=== PATIENT | male | born 1940 | race Caucasian/White ===

== ENCOUNTER 2020-08-25 11:59 | Emergency (ER) | payer OTHER ==
[~2020-08-25] VITALS: Ht 180.3 cm; Wt 104.3 kg
[~2020-08-25 11:59] MED LIST: AMLODIPINE BESY10 MG PO; ASPIRIN300 MG PO; CRESTOR10 MG PO; DEPO-TESTO100 MG/1 M IM; GLUCOPHAGE XR750 MG PO; HYTRIN 5 M5 MG/1 CAP PO; IRBESARTAN-HCT1 EAC1 PO; LANSOPRAZOLE30 MG PO; MAG DELAY64 MG PO; SULINDAC 200MG200 M1 PO; ULTRAM 50MG TAB50 MG PO
[2020-08-25 14:10] LABS: ABSOLUTE NEUTROPHILS 6.1 thou/uL (1.4-8.2); BASOPHILS 0.3 % (0.0-2.0); EOSINOPHILS 2.4 % (0.0-3.0); HEMATOCRIT 39.6 % (42.0-52.0); HEMOGLOBIN 13.5 gm/dL (14.0-18.0); LYMPHOCYTES 10.9 % (24.0-44.0); MCH 30.5 pg (26.0-34.0); MCHC 34.1 g/dL (28.0-37.0); MCV 89.4 fL (80.0-100.0); MONOCYTES 7.3 % (1.0-8.0); PLATELET COUNT 130 thou/uL (150-400); POLYS 79.1 % (36.0-66.0); RBC 4.43 mil/uL (4.50-6.00); RDW 14.9 % (10.5-14.5); WBC 7.7 thou/uL (4.0-11.0)
[2020-08-25 14:19] LABS: CALCIUM 8.8 mg/dL (8.5-10.1); CREATININE 1.1 mg/dL (0.7-1.3); POTASSIUM 3.9 mmol/L (3.5-5.1)
[2020-08-25 14:25] LABS: ALBUMIN 4.1 g/dL (3.4-5.0); TOTAL BILIRUBIN 0.4 mg/dL (0.2-1.0); TOTAL PROTEIN 7.3 g/dL (6.4-8.2)
[2020-08-25] MEDS ORDERED: DOXYCYCLINE 10100 MG PO (16:22)
[2020-08-25 16:39] VITALS: BP 171/86
== END 2020-08-25 16:38 | disposition home or self-care (01) ==
LOC: ER 11:59
PROVIDERS: Physician Assistant
DX: S90.521A Blister (nonthermal), right ankle, initial encounter (principal); L03.115 Cellulitis of right lower limb; L53.8 Other specified erythematous conditions; I10 Essential (primary) hypertension; E11.9 Type 2 diabetes mellitus without complications; E78.5 Hyperlipidemia, unspecified; Z79.82 Long term (current) use of aspirin; Z79.899 Other long term (current) drug therapy; X58.XXXA Exposure to other specified factors, initial encounter; Y93.89 Activity, other specified; Y92.89 Other specified places as the place of occurrence of the external cause; Y99.9 Unspecified external cause status

== ENCOUNTER → 2020-09-15 | Outpatient (CLI) | payer OTHER ==
[~2020-09-15] MED LIST changes: +DOXYCYCLINE 10100 MG PO
== END ==
LOC: SJCVC 14:27
PROVIDERS: ATTEND Internal Medicine Cardiovascular Disease
DX: R94.31 Abnormal electrocardiogram [ECG] [EKG] (principal); I10 Essential (primary) hypertension; R06.00 Dyspnea, unspecified; I35.2 Nonrheumatic aortic (valve) stenosis with insufficiency; E78.00 Pure hypercholesterolemia, unspecified; K21.9 Gastro-esophageal reflux disease without esophagitis; M19.90 Unspecified osteoarthritis, unspecified site; E78.5 Hyperlipidemia, unspecified; Z79.82 Long term (current) use of aspirin; Z79.899 Other long term (current) drug therapy; Z87.891 Personal history of nicotine dependence

== ENCOUNTER → 2020-09-16 | Outpatient (CLI) | payer OTHER | LOC: HYPER 07:47 | PROVIDERS: ATTEND Emergency Medicine | DX: E11.622 Type 2 diabetes mellitus with other skin ulcer (principal); L97.312 Non-pressure chronic ulcer of right ankle with fat layer exposed; L03.115 Cellulitis of right lower limb; E78.5 Hyperlipidemia, unspecified; I10 Essential (primary) hypertension; Z79.84 Long term (current) use of oral hypoglycemic drugs; Z79.82 Long term (current) use of aspirin ==

== ENCOUNTER → 2020-10-06 | Outpatient (CLI) | payer OTHER | LOC: SJCVCIMAG 09:36 | PROVIDERS: ATTEND Internal Medicine Cardiovascular Disease | DX: I08.0 Rheumatic disorders of both mitral and aortic valves (principal); I49.1 Atrial premature depolarization; I49.3 Ventricular premature depolarization; I11.9 Hypertensive heart disease without heart failure; R00.0 Tachycardia, unspecified; R06.00 Dyspnea, unspecified; E78.00 Pure hypercholesterolemia, unspecified; R60.9 Edema, unspecified; M19.90 Unspecified osteoarthritis, unspecified site; R06.09 Other forms of dyspnea; K21.9 Gastro-esophageal reflux disease without esophagitis; E78.5 Hyperlipidemia, unspecified; Z79.82 Long term (current) use of aspirin; Z79.899 Other long term (current) drug therapy; Z87.891 Personal history of nicotine dependence; Z72.89 Other problems related to lifestyle ==

== ENCOUNTER → 2020-10-26 | Outpatient (CLI) | payer OTHER ==
[~2020-10-26] MED LIST changes: +ASA81BEC PO; +AVALIDE 150-121 EACH PO; +FEXOFENADINE H180 MG PO; +GLUCOSAMINE &1 EACH PO; +HYTRIN 2MG CAPSU2 M1 PO; +MUCINEX600 MG PO; +MULTI VITAMIN1 EACH PO; +NORVASC5 MG PO; +OMEGA 3 1,0001 EACH PO; +PREVACID30 MG PO; +STOOL SOFTENER100 M1 PO; +TYLENOL ARTHRI650 MG PO; +TYLENOL PM EX-1 EACH PO
[2020-10-26 12:32] LABS: URINE BILIRUBIN NEGATIVE (Negative); URINE BLOOD NEGATIVE (Negative); URINE CLARITY CLEAR; URINE COLOR YELLOW; URINE GLUCOSE-RANDOM* NEGATIVE (Negative); URINE KETONES NEGATIVE (Negative); URINE LEUKOCYTES-REFLEX NEGATIVE (Negative); URINE NITRITE-REFLEX NEGATIVE (Negative); URINE PROTEIN (DIPSTICK) NEGATIVE (Negative); URINE SPECIFIC GRAVITY <= 1.005 (1.005-1.035); URINE UROBILINOGEN 0.2 E.U./dl (0.2-1.0)
[2020-10-26 12:34] LABS: HEMATOCRIT 39.4 % (42.0-52.0); HEMOGLOBIN 13.5 gm/dL (14.0-18.0); MCH 29.9 pg (26.0-34.0); MCHC 34.3 g/dL (28.0-37.0); RBC 4.53 mil/uL (4.50-6.00); RDW 15.9 % (10.5-14.5); WBC 5.4 thou/uL (4.0-11.0)
[2020-10-26 12:45] LABS: ALBUMIN 4.3 g/dL (3.4-5.0); CALCIUM 8.6 mg/dL (8.5-10.1); CREATININE 1.2 mg/dL (0.7-1.3); POTASSIUM 4.5 mmol/L (3.5-5.1)
[2020-10-26 12:46] LABS: INR 1.1; PROTIME 11.2 Seconds (9.3-11.4)
== END ==
LOC: PAC 09:34
PROVIDERS: ATTEND Orthopaedic Surgery
DX: Z01.812 Encounter for preprocedural laboratory examination (principal); M17.11 Unilateral primary osteoarthritis, right knee; Z91.048 Other nonmedicinal substance allergy status

== ENCOUNTER → 2020-11-03 | Outpatient (CLI) | payer OTHER | LOC: LAB 11:42 | PROVIDERS: ATTEND Student in an Organized Health Care Education/Training Program | DX: Z20.822 Contact with and (suspected) exposure to COVID-19 (principal) ==

== ENCOUNTER 2020-11-05 06:38 | Observation (INO) | payer OTHER ==
[~2020-11-05] VITALS: Ht 180.3 cm; Wt 104.3 kg
[2020-11-05 08:51] VITALS: BP 141/68
[2020-11-05 12:54] VITALS: BP 144/69
--- NOTE | 2020-11-05 14:08 | NUR ---
ASSESSMENT: CM REVIEWED CHART AND SPOKE WITH PATIENT AT THE BEDSIDE. PT IS ALERT AND ORIENTED X4. PT IS S/P RIGHT TKA. PT REPORTS LIVING IN A HOUSE ALONE. PT REPORTS HE HAS NO STEPS TO ENTER OR ONCE INSIDE. PT REPORTS HE HAS A RAMP TO ENTER. PT REPORTS HE HAS A CANE AND A WALKER AT HOME. PT STATES HE HAS A SHOWER CHAIR. PTS DAUGHTER GROCERY SHOPS FOR HIM AND CAN RUN ERRANDS IF NEEDED ALTHOUGH PT REPORTS HE STILL DRIVES. CM DISCUSSED ROLE. PT REPORTS HE HAS NEVER HAD HH IN THE PAST ALTHOUGH HIS HAD [facility] IN THE PAST AND HE HAS NEVER BEEN TO A SNF. CM DISCUSSED ROLE. CM WILL CONTINUE TO FOLLOW AND AWAIT PT EVAL.
--- NOTE | 2020-11-05 15:10 | NUR ---
Patient arrived on unit via bed. A/OX 4. On 4 L o2 via nasal cannula. Has right josee dressing to right knee-dry, clean and intact. Polor pack to right knee. Josee drain to left knee. Pain level 8/10 right knee- morphine given for pain. IV fluids infusioning.
[2020-11-05 15:34] VITALS: BP 146/73
[2020-11-05 21:12] VITALS: BP 122/60
[2020-11-06 02:24] LABS: ABSOLUTE NEUTROPHILS 7.1 thou/uL (1.4-8.2); BASOPHILS 0.1 % (0.0-2.0); EOSINOPHILS 0.9 % (0.0-3.0); HEMATOCRIT 31.2 % (42.0-52.0); HEMOGLOBIN 10.7 gm/dL (14.0-18.0); LYMPHOCYTES 10.3 % (24.0-44.0); MCH 30.2 pg (26.0-34.0); MCHC 34.3 g/dL (28.0-37.0); MCV 88.3 fL (80.0-100.0); MONOCYTES 7.6 % (1.0-8.0); PLATELET COUNT 114 thou/uL (150-400); POLYS 81.1 % (36.0-66.0); RBC 3.54 mil/uL (4.50-6.00); RDW 15.6 % (10.5-14.5); WBC 8.8 thou/uL (4.0-11.0)
--- NOTE | 2020-11-06 02:30 | NUR ---
PT IS A/O X4 AND IS UP WITH ASSISTANCE. PLEASANT AND COOPERATIVE. VSS. AFEBRILE. MEDICATION GIVEN PER MAR. FALL PRECAUTIONS IN PLACE. URINAL USED AT THE BEDSIDE. NO BM THIS SHIFT. CALL LIGHT IS WITHIN REACH. PT CALLS OUT APPROPRIATELY.
[2020-11-06 02:34] LABS: CALCIUM 7.6 mg/dL (8.5-10.1); CREATININE 1.2 mg/dL (0.7-1.3); MAGNESIUM 1.9 mg/dL (1.8-2.4); POTASSIUM 4.4 mmol/L (3.5-5.1)
[2020-11-06 08:23] VITALS: BP 125/59
[2020-11-06] MEDS ORDERED: TRI-BUFFERED A325 M1 PO (13:20)
[2020-11-06] MEDS ORDERED: HYDROCODON-ACE1 EAC7 PO (13:21)
[2020-11-06] MEDS ORDERED: MS CONTIN15 MG PO (13:21)
--- NOTE | 2020-11-06 13:26 | O ---
[facility] [place] [address] OPERATIVE REPORT Name: YOLA CARRILLO Room #: 448-P [facility] M.R.#: [id number] Admission: 11/05/20 Attend Phys: Ashok Mercedes MD Discharge: Date of : 42 Report #: [id number] THIS REPORT FOR: cc: Gavin Quinonez MD, Eric K. MD Abraham,Ashok Bloom MD ~ DATE OF SERVICE: 11/05/2020 PREOPERATIVE DIAGNOSIS: Right knee osteoarthritis. POSTOPERATIVE DIAGNOSIS: Right knee osteoarthritis. PROCEDURE: Right total knee arthroplasty using Navio robotic assistance. SURGEON: Ashok Mercedes M.D. SELF PROPELLED DREDGE OPERATOR: None. ANESTHESIA: LMA with adductor canal block. IMPLANTS: Suarez [employer] Nephew size 7 Journey II BCS cobalt chrome femur, size 7 tibia, size 11 constrained polyethylene and size 38 patella. TOURNIQUET TIME: 69 minutes. ESTIMATED BLOOD LOSS: 25 mL. COMPLICATIONS: None. SPECIMENS: None. CONDITION UPON LEAVING THE OR: Stable. INDICATIONS FOR PROCEDURE: The patient is a 80-year-old gentleman with severe right knee osteoarthritis. He had failed conservative measures for this and after discussion with him, he elected for a right total knee arthroplasty. DESCRIPTION OF PROCEDURE: Risks, benefits, alternatives and complications were discussed in detail with the patient including but not limited to risk of anesthesia, risk of damage to nerves, arteries, blood vessels, risk for infection, bleeding, risk for continued knee pain, need for reoperation, DVT, PE and other complications. Informed consent was obtained from the patient. The right knee was appropriately marked in the preoperative holding area. IV Ancef was given for preoperative antibiotics. Adductor canal block was placed by anesthesia. He was brought to the operating room and placed in the supine position on the operating room table. LMA anesthesia was induced without [facility] [address] [place] [address] OPERATIVE REPORT Name: YOLA CARRILLO Room #: 448[facility]P [id number] Admission: 11/05/20 Attend Phys: Ashok Mercedes MD Discharge: Date of : 42 Report #: [id number] complication. Tourniquet was placed on the right thigh. Right lower extremity was prepped and draped in normal sterile fashion. Timeout was performed properly identifying the patient and procedure as well as the instrumentation and implants. All in the operating room in agreement. Right lower extremity was exsanguinated and tourniquet inflated. Tourniquet time was 69 minutes. Standard midline approach to the knee was made with 10 blade through the skin. Dissection was taken down sharply to the fascia and deep flaps were developed medially and laterally. Fresh 10 blade was used to make a medial parapatellar arthrotomy and the knee was inspected. There was severe tricompartmental osteoarthritis. ACL and PCL were removed sharply. Reference pins were placed in the femur and the tibia and the knee was digitally mapped using the FetchDog robotic system. Intraoperative plan was made. We sized the size 7 femur, size 7 tibia and a 10 spacer. After acceptance of the intraoperative plan, the distal femoral cut was made with Navio bur. Distal femoral cutting block was pinned in place and chamfer cuts were made. Attention was turned to the tibia. Remainder of the menisci removed with Bovie cautery. Tibial resection guide was pinned in place using Navio for placement and tibial resection was made. Medial osteophyte was then removed from the tibia and flexion and extension gaps were checked and found to have good balance in flexion and extension both medially and laterally. Tibia sized, found to be a size 7. Size 7 tibial trial was placed and punched. Size 7 femoral trial was placed, box cut was made. This was then trialed with a size 10 and then a size 11 polyethylene. Size 11 polyethylene demonstrated up to 2 mm laxity medially with 1 mm laterally. It was felt we can make up for this with a constrained implant. 9 mm of bone was resected from the posterior surface of the patella and a size 38 patellar trial button was placed. Knee was taken through range of motion, found to be stable, found to have good patellar tracking. Trial components were removed. Bone ends were thoroughly irrigated with normal saline. A final size 7 tibia, size 7 Journey II BCS cobalt chrome femur and a size 38 patella were cemented in place using standard cementation techniques. While the cement cured, a periarticular injection consisting of morphine, ropivacaine, epinephrine, Toradol was placed around the knee joint capsule. After the cement cured, tourniquet was deflated. Hemostasis was obtained with Bovie cautery. Final size 11 constrained polyethylene was placed. A gram of vancomycin was placed deep in the joint. Fascia was closed with 0 Vicryl. Skin was closed with 2-0 Vicryl, skin staple and a KERA dressing was applied. The patient tolerated this procedure well and went to recovery room under the care of anesthesia postoperatively. <ELECTRONICALLY SIGNED> By: Ashok Mercedes MD 11/06/20 1326 1815 193 Ashok Mercedes MD /nt
[2020-11-06 15:08] VITALS: BP 125/59
--- NOTE | 2020-11-06 15:10 | NUR ---
ON-GOING ASSESSMENT: CM REVIEWED CHART. PT HAS ORDERS TO DISCHARGE HOME TODAY WITH . PT PREFERS TO USE [facility] HIS HAD THEM IN THE PAST. CM FAXED REFERRAL TO [facility] AND THEY CAN ACCEPT. CM FAXED DISCHARGE PAPERWORK TO [facility] AND CONFIRMED THEY RECEIVED IT. PT HAD SAT EXERCISE TEST COMPLETED AND DOES NOT QUALIFY/NEED OXYGEN AT DISCHARGE. PTS SON IS COMING TO PICK HIM UP THIS EVENING. CASE CLOSED.
--- NOTE | 2020-11-06 15:28 | NUR ---
PATIENT ALERT & O X4. RIGHT TOTAL KNEE DONE. POLAR PACK, PHYLICIA HOSE, AND SCDS IN PLACE. PATIENT COMPLAINED OF PAIN X 2. PRN MEDICATION GIVEN. PATIENT WAS HAVING SHORTNESS OF BREATH DURING THERAPY THIS AM. O2 WAS APPLIED. THERAPY DONE AGAIN THIS EVENING AND WITH RT. TOLERATED WELL AND WILL NOT REQUIRE OXYGEN FOR HOME. HOSPITALIST NOTIFIED AND PATIENT CLEARED TO DISCHARGE.
--- NOTE | 2020-11-06 16:00 | NUR ---
PATIENT DISCHARGING TO HOME. SON WILL BE THERE TO ASSIST. DISCHARGE INSTRUCTIONS GIVEN AND EDUCATIONAL PACKET SENT WITH THE PATIENT. DR. MARINELLI CALLED IN REGARD TO PRESCRIPTIONS. MEDICATIONS WILL BE CALLED IN TO PATIENTS PHARMACY BY DR. MARINELLI OFFICE. PATIENT AND SON VERBALIZED UNDERSTANDING. PATIENT DISCHARGED AT 1600.
== END 2020-11-06 16:09 | disposition home or self-care (01) ==
LOC: 4S 06:38 → OR 06:38 → TBA 06:43 → OR 09:38 → 4S 10:29 → OR 17:32 → 4S 11-06 16:09
PROVIDERS: Nurse Practitioner; ADMIT Orthopaedic Surgery; ATTEND Orthopaedic Surgery
DX: M17.11 Unilateral primary osteoarthritis, right knee (principal); I10 Essential (primary) hypertension; E78.5 Hyperlipidemia, unspecified; G47.30 Sleep apnea, unspecified; Z79.899 Other long term (current) drug therapy; Z79.82 Long term (current) use of aspirin
CPT/HCPCS: 10102; 50010; 50101; 50415; 50954; 51130; 51225; 51320; 51412; 52001; 52282; 53000; 53078; 56527; 56528; 57095; 57103; 57110; 57127; 57180; 58239; 62110; 62900; 70005

== ENCOUNTER 2020-11-08 12:12 | Observation (INO) | payer OTHER ==
[~2020-11-08] VITALS: Ht 180.3 cm; Wt 105.2 kg
[~2020-11-08 12:12] MED LIST changes: +HYDROCODON-ACE1 EAC7 PO; +MS CONTIN15 MG PO; +TRI-BUFFERED A325 M1 PO
[2020-11-08 12:26] VITALS: BP 99/55
[2020-11-08 15:35] VITALS: BP 107/51
[2020-11-08 15:35] LABS: ABSOLUTE NEUTROPHILS 6.8 thou/uL (1.4-8.2); BASOPHILS 0.7 % (0.0-2.0); HEMATOCRIT 31.4 % (42.0-52.0); HEMOGLOBIN 10.8 gm/dL (14.0-18.0); LYMPHOCYTES 15.9 % (24.0-44.0); MCH 30.1 pg (26.0-34.0); MCHC 34.3 g/dL (28.0-37.0); MCV 87.8 fL (80.0-100.0); MONOCYTES 10.3 % (1.0-8.0); PLATELET COUNT 158 thou/uL (150-400); POLYS 71.1 % (36.0-66.0); RBC 3.58 mil/uL (4.50-6.00); RDW 15.7 % (10.5-14.5); WBC 9.6 thou/uL (4.0-11.0)
[2020-11-08 15:37] LABS: CALCIUM 8.8 mg/dL (8.5-10.1); CREATININE 1.4 mg/dL (0.7-1.3); POTASSIUM 4.1 mmol/L (3.5-5.1)
[2020-11-08 15:40] VITALS: BP 104/59
[2020-11-08 16:10] VITALS: BP 141/72
--- NOTE | 2020-11-08 17:06 | NUR ---
Patient arrived from ED via cart at 1610. Patient's son arrived and was at bedside. Pt c/o pain, swelling to R knee s/p sx on November 05. Home health had not been to see him since d/c until today. Has been having difficulty getting around at home. Would like to d/c to rehab and not home after this hospital stay.
[2020-11-08] MEDS ORDERED: ASA81BEC PO (18:31)
[2020-11-08] MEDS ORDERED: TESSALON PERLE100 M1 PO (18:50)
[2020-11-08] MEDS ORDERED: MILK OF MA2400 MG/11 PO (18:54)
[2020-11-08] MEDS ORDERED: METAMUCIL0.52 GM PO (18:55)
[2020-11-08] MEDS ORDERED: MEGARED ADVANC1 EAC1 PO (18:57)
[2020-11-08 19:15] VITALS: BP 122/54
--- NOTE | 2020-11-09 01:22 | NUR ---
ASSESSED AT START OF SHIFT. PT RESTING IN BED EVENING MEDS GIVN AND PT ISELA IT WELL. IV INTACT AND FLUIDS INFUSING. KERA DRESSING, POLAR PACK IN PLACE. CALL PREC MAINTAINED. URINAL AT BEDSIDE WILL CONT TO MONITOR.
[2020-11-09 04:36] VITALS: BP 124/62
[2020-11-09 05:40] LABS: CALCIUM 8.1 mg/dL (8.5-10.1); CREATININE 1.1 mg/dL (0.7-1.3); POTASSIUM 4.1 mmol/L (3.5-5.1)
[2020-11-09 05:47] LABS: HEMATOCRIT 27.2 % (42.0-52.0); HEMOGLOBIN 9.5 gm/dL (14.0-18.0); MCH 30.2 pg (26.0-34.0); MCHC 34.8 g/dL (28.0-37.0); MCV 86.6 fL (80.0-100.0); RBC 3.14 mil/uL (4.50-6.00); RDW 15.6 % (10.5-14.5); WBC 6.9 thou/uL (4.0-11.0)
[2020-11-09 07:50] VITALS: BP 130/66
--- NOTE | 2020-11-09 12:30 | NUR ---
ASSESSMENT: CM REVIEWED CHART AND SPOKE WITH PATIENT AT THE BEDSIDE. PT IS ALERT AND ORIENTED X4. PT WAS S/P RIGHT TKA 11/05 AND [facility] AND REPORTS INCREASED PAIN AND INABILITY TO WALK WELL. PT LIVES IN A HOUSE ALONE. PT REPORTS HE HAS NO STEPS TO ENTER OR ONCE INSIDE. PT REPORTS HE HAS A RAMP TO ENTER. PT REPORTS HE HAS A CANE AND A WALKER AT HOME. PT STATES HE HAS A SHOWER CHAIR. PTS DAUGHTER GROCERY SHOPS FOR HIM AND CAN RUN ERRANDS IF NEEDED ALTHOUGH PT REPORTS HE STILL DRIVES. [facility] IS AWARE OF PATIENTS ADMISSION. CM MET WITH PATIENT AND HE REPORTS HE IS AGREEABLE FOR SNF AND WILL GO ANYWHERE BUT [facility] HIS WAS THERE AND THE CARE WAS TERRIBLE. CM PROVIDED PATIENT WITH A SNF LIST TO REVIEW THAT IS IN NETWORK WITH HIS INSURANCE. PT WANTED A REFERRAL TO [facility]. CM SPOKE WITH LIASON FROM [facility] WHO REPORTS THAT PATIENT WOULD HAVE A COPAY OF 225/DAY. JEFF THEN SENT REFERRAL TO [facility] FOR THEM TO REVIEW REFERRAL IT IS IN NETWORK. AWAITING INPUT AT THIS TIME.
[2020-11-09 17:50] VITALS: BP 136/68
[2020-11-09 20:46] VITALS: BP 133/57
--- NOTE | 2020-11-10 02:53 | NUR ---
Pt assessed at beginning of shift. Sitting up in chair, family member at bedside. Franklin dsg and polar pack in place. Meds given per mar. R AC pic CDI, flushing well. Emptied urinal. C/O constipation, bowel sounds hypoactive, will pass on in shift report to obtain order for stool softner. Pt denies any Pain, reports tolerable level. All needs met. Call light in reach.
[2020-11-10 03:31] VITALS: BP 147/73
[2020-11-10 08:04] VITALS: BP 133/59
--- NOTE | 2020-11-10 10:14 | NUR ---
Assumed care of pt at 0700. Pt a&ox4. Pain controlled. SBA with walker and gait-belt. Polar care in place. Pt accepted to [facility]. Will discharge today. Covid test sent to lab. Call light within reach. Fall precautions in place. Will continue to monitor.
--- NOTE | 2020-11-10 11:05 | NUR ---
ON-GOING ASSESSMENT: CM REVIEWED CHART AND SPOKE WITH PATIENT AT THE BEDSIDE. CM RECEIVED A CALL FROM FAMILIA GUAN AT [facility] WHO REPORTS THEY HAVE INSURANCE AUTH TO ACCEPT PATIENT. CM NOTIFIED ATTENDING WELL PATIENT AND HIS SON AND THEY ARE AGREEABLE WITH PLAN TO DISCHARGE HOME TODAY. CM FAXED DISCHARGE PAPERWORK TO [facility] AND CONFIRMED THEY RECEIVED IT WELL THE NEGATIVE COVID TEST. CHART COPY WAS ORDERED. BEDSIDE RN HAS THE NUMBER FOR REPORT. TRANSPORTATION HAS BEEN TENTATIVELY ARRANGED FOR 1300. BEDSIDE RN AND PT WELL HIS SON WERE NOTIFIED.
== END 2020-11-10 13:28 | disposition home or self-care (01) ==
LOC: ER 12:12 → 4S 15:40
PROVIDERS: Nurse Practitioner; ADMIT Hospitalist; ATTEND Hospitalist
DX: M25.561 Pain in right knee (principal); G89.18 Other acute postprocedural pain; Z20.822 Contact with and (suspected) exposure to COVID-19; R53.1 Weakness; J18.9 Pneumonia, unspecified organism; A41.9 Sepsis, unspecified organism; R26.89 Other abnormalities of gait and mobility; E78.5 Hyperlipidemia, unspecified; I10 Essential (primary) hypertension; M17.11 Unilateral primary osteoarthritis, right knee; N40.0 Benign prostatic hyperplasia without lower urinary tract symptoms; K59.00 Constipation, unspecified; F32.9 Major depressive disorder, single episode, unspecified; K21.9 Gastro-esophageal reflux disease without esophagitis; G47.30 Sleep apnea, unspecified; Z86.73 Personal history of transient ischemic attack (TIA), and cerebral infarction without residual deficits; Z79.899 Other long term (current) drug therapy
CPT/HCPCS: 10195

== ENCOUNTER 2020-11-26 09:40 | Emergency (ER) | payer OTHER ==
[~2020-11-26] VITALS: Ht 180.3 cm; Wt 104.3 kg
[~2020-11-26 09:40] MED LIST changes: +MEGARED ADVANC1 EAC1 PO; +METAMUCIL0.52 GM PO; +MILK OF MA2400 MG/11 PO; +TESSALON PERLE100 M1 PO
[2020-11-26 12:40] LABS: ABSOLUTE NEUTROPHILS 4.9 thou/uL (1.4-8.2); BASOPHILS 0.5 % (0.0-2.0); EOSINOPHILS 2.9 % (0.0-3.0); HEMATOCRIT 33.2 % (42.0-52.0); HEMOGLOBIN 10.9 gm/dL (14.0-18.0); MCH 28.7 pg (26.0-34.0); MCV 87.1 fL (80.0-100.0); MONOCYTES 7.1 % (1.0-8.0); PLATELET COUNT 254 thou/uL (150-400); POLYS 74.5 % (36.0-66.0); RBC 3.81 mil/uL (4.50-6.00); WBC 6.5 thou/uL (4.0-11.0)
[2020-11-26 12:46] LABS: URINE BILIRUBIN NEGATIVE (Negative); URINE BLOOD NEGATIVE (Negative); URINE CLARITY CLEAR; URINE COLOR YELLOW; URINE GLUCOSE-RANDOM* NEGATIVE (Negative); URINE KETONES NEGATIVE (Negative); URINE LEUKOCYTES-REFLEX TRACE (Negative); URINE NITRITE-REFLEX NEGATIVE (Negative); URINE PROTEIN (DIPSTICK) NEGATIVE (Negative); URINE SPECIFIC GRAVITY <= 1.005 (1.005-1.035); URINE UROBILINOGEN 0.2 E.U./dl (0.2-1.0)
[2020-11-26 12:54] LABS: CALCIUM 8.4 mg/dL (8.5-10.1); CREATININE 1.3 mg/dL (0.7-1.3); POTASSIUM 4.3 mmol/L (3.5-5.1)
[2020-11-26 13:05] LABS: ALBUMIN 3.6 g/dL (3.4-5.0); TOTAL BILIRUBIN 0.8 mg/dL (0.2-1.0)
--- NOTE | 2020-11-26 13:19 | EKG ---
[address] [address] ELECTROCARDIOGRAM REPORT Name: LORENAYOLA VARGAS [id number] Admission: 11/26/20 Attend Phys: Discharge: Date of : 42 Report #: [id number] [facility] ED Test Date: 2020-11-26 Test Time: 10:00:48 Pat Name: YOLA CARRILLO Department: Room: Gender: M Primary Care Pediatrician: : 1940 Requested By: Winnie Boles Order Number: [id number] MD: Marko Echavarria Measurements Intervals [place] Rate: 75 P: 52 IA: 194 QRS: 59 QRSD: 97 T: 74 QT: 373 QTc: 417 Interpretive Statements SINUS ARRHYTHMIA Atrial premature complexes in couplets No previous ECG available for comparison Electronically Signed On 11-26-2020 13:19:18 CDT by Marko Echavarria [email or web address] <ELECTRONICALLY SIGNED> By: Marko Echavarria MD, [facility] 11/26/20 1319 [address] [facility] Marko Echavarria MD, FACC /EPI
[2020-11-26] MEDS ORDERED: ELIQUIS5 M1 PO (17:14)
[2020-11-26 17:49] VITALS: BP 132/63
--- NOTE | 2020-11-27 10:21 | EKG ---
[address] [place] [address] ELECTROCARDIOGRAM REPORT Name: YOLA CARRILLO Room #: DEP HEMAL Quiroz#: [id number] Admission: 11/26/20 Attend Phys: Discharge: 11/26/20 Date of : 42 Report #: [id number] [facility] ED Test Date: 2020-11-26 Test Time: 15:36:30 Pat Name: YOLA CARRILLO Department: Room: Gender: M [employer] Assistant: SHREYA : 1940 Requested By: Winnie Boles Order Number: [id number] MD: Marko Echavarria Measurements Intervals [place] Rate: 73 P: 65 AK: 205 QRS: 44 QRSD: 106 T: 62 QT: 397 QTc: 438 Interpretive Statements Sinus rhythm Compared to ECG 11/26/2020 10:00:48 Sinus arrhythmia no longer present Atrial premature complex(es) no longer present Electronically Signed On 11-27-2020 10:21:10 CDT by Marko Echavarria [email or web address] <ELECTRONICALLY SIGNED> By: Marko Echavarria MD, [facility] 11/27/20 1021 1536 1536 Marko Echavarria MD, FACC /EPI
== END 2020-11-26 17:52 | disposition short-term general hospital (02) ==
LOC: ER 09:40
PROVIDERS: Emergency Medicine; Physician Assistant
DX: I26.99 Other pulmonary embolism without acute cor pulmonale (principal); Z20.822 Contact with and (suspected) exposure to COVID-19; E87.1 Hypo-osmolality and hyponatremia; I82.431 Acute embolism and thrombosis of right popliteal vein; I82.441 Acute embolism and thrombosis of right tibial vein; I10 Essential (primary) hypertension; E78.5 Hyperlipidemia, unspecified; K21.9 Gastro-esophageal reflux disease without esophagitis; Z98.890 Other specified postprocedural states; Z79.891 Long term (current) use of opiate analgesic; Z79.899 Other long term (current) drug therapy; Z79.82 Long term (current) use of aspirin; Z79.1 Long term (current) use of non-steroidal anti-inflammatories (NSAID)

== ENCOUNTER → 2021-02-11 | Outpatient (CLI) | payer OTHER ==
[~2021-02-11] MED LIST changes: +ELIQUIS5 M1 PO
== END ==
LOC: SJCVC 13:15
PROVIDERS: ATTEND Internal Medicine Cardiovascular Disease
DX: R94.31 Abnormal electrocardiogram [ECG] [EKG] (principal); I10 Essential (primary) hypertension; I35.0 Nonrheumatic aortic (valve) stenosis; E78.00 Pure hypercholesterolemia, unspecified; R60.9 Edema, unspecified; K21.9 Gastro-esophageal reflux disease without esophagitis; E78.5 Hyperlipidemia, unspecified; Z79.82 Long term (current) use of aspirin; Z79.899 Other long term (current) drug therapy; Z87.891 Personal history of nicotine dependence; Z72.89 Other problems related to lifestyle